=== PATIENT | male | born 1955 | race Caucasian/White ===

== ENCOUNTER → 2017-02-20 | Outpatient (CLI) | payer OTHER ==
--- NOTE | 2017-02-21 16:48 | ECHOF ---
Referral Reason:R01.1 Murmur MEASUREMENTS -------- HEIGHT: 185.4 cm WEIGHT: 93.0 kg BP: IVSd: 1.4 cm (0.6 - 1.1) LVIDd: 5.4 cm (3.9 - 5.3) LVPWd: 1.2 cm (0.6 - 1.1) EDV(Teich): 140 ml IVSs: 1.5 cm LVIDs: 2.6 cm LVPWs: 1.4 cm ESV(Teich): 23 ml EF(Teich): 83 % %FS: 53 % SV(Teich): 117 ml LALs A4C: 6.8 cm LAAs A4C: 29.4 cm LAESV A-L A4C: 108 ml LAESV MOD A4C: 102 ml LALs A2C: 6.9 cm LAAs A2C: 35.4 cm LAESV A-L A2C: 153 ml LAESV MOD A2C: 149 ml LAESV(A-L): 130 ml LAESV Index (A-L): 59.82 ml/m Ao Diam: 3.6 cm (2.0 - 3.7) LA Diam: 4.8 cm (2.7 - 3.8) AV Cusp: 1.9 cm (1.5 - 2.6) MV E Vikas: 1.19 m/s MV DecT: 314 ms MV Dec Edmonson: 3.8 m/s MV A Vikas: 0.64 m/s MV E/A Ratio: 1.86 AV Vmax: 1.46 m/s AV maxP.52 mmHg TR Vmax: 3.09 m/s TR maxP.31 mmHg RAP: 5.00 mmHg RVSP: 43.31 mmHg FINDINGS -------- Sinus rhythm. This was a technically adequate study. The left ventricular size is normal. There is mild concentric left ventricular hypertrophy. Overa ll left ventricular systolic function is normal with, an EF between 55 - 60 %. The right ventricle is normal in size and function. LA is severely dilated >40 ml/m2 The right atrium is normal in size. Aortic valve is trileaflet and is mildly thickened. Trace amount of aortic regurgitation. There is no evidence of aortic stenosis. The mitral valve leaflets are mildly thickened. [id number] mitral regurgitation is present. Mitral regurgitation is predominately an anteriorly directed eccentric jet. Trace tricuspid regurgitation present. There is mild pulmonary hypertension. The right ventricula r systolic pressure, as measured by Doppler, is 43.31mmHg. Trace/mild (physiologic) pulmonic regurgitation. The aortic root size is normal. IVC Not well visulized. The pericardium is normal. There is no pericardial effusion. CONCLUSIONS -------- 1. Sinus rhythm. 2. This was a technically adequate study. 3. The left ventricular size is normal. 4. There is mild concentric left ventricular hypertrophy. 5. Overall left ventricular systolic function is normal with, an EF between 55 - 60 %. 6. LA is severely dilated >40 ml/m2 7. Aortic valve is trileaflet and is mildly thickened. 8. Trace amount of aortic regurgitation. 9. The mitral valve leaflets are mildly thickened. 10. [id number] mitral regurgitation is present. 11. Mitral regurgitation is predominately an anteriorly directed eccentric jet. 12. Trace tricuspid regurgitation present. 13. There is mild pulmonary hypertension. 14. The right ventricular systolic pressure, as measured by Doppler, is 43.31mmHg. 15. Trace/mild (physiologic) pulmonic regurgitation. 16. The aortic root size is normal. 17. IVC Not well visulized. 18. There is no pericardial effusion. ARCHITECTURE PROFESSOR: García Garcia RDCS
== END | disposition home or self-care (01) ==
LOC: RADECHMAIN 08:17
PROVIDERS: ATTEND Internal Medicine Hematology & Oncology
DX: I34.0 Nonrheumatic mitral (valve) insufficiency (principal); I51.7 Cardiomegaly; I27.20 Pulmonary hypertension, unspecified; R01.1 Cardiac murmur, unspecified
CPT/HCPCS: 93306